=== PATIENT | male | born 1965 | race Caucasian/White ===

== ENCOUNTER 2018-12-07 22:40 | Emergency (ER) | payer SELFPAY ==
[~2018-12-07] VITALS: Ht 190.5 cm; Wt 95.3 kg
--- NOTE | 2018-12-07 22:53 | Emergency Room Report ---
History of Present Illness General Chief Complaint: Laceration Source: Patient Present Illness HPI This is a 53-year-old male who is right-hand dominant. He presents with chief complaint of laceration left elbow. Onset was acute and occurred just prior to arrival. He was saying a window. It was stuck and he try to push down on it. He slipped and his elbow went to the window pain. He sustained laceration to the posterior aspect the elbow. It was bleeding. He came right away. Tetanus was last year. Minimal pain. No other complaint. Allergies: Coded Allergies: No Known Allergies (Unverified , 12/07/18) Patient History Past Medical History: see triage record, old chart reviewed Past Surgical History: none Pertinent Family History: none Social History: Denies: smoking Immunizations: UTD Reviewed Nursing Documentation: PMH: Agreed; PSxH: Agreed Nursing Documentation-PMH Past Medical History: No Stated History Review of Systems Eye: Denies: eye pain, blurred vision ENT: Denies: ear pain, nose congestion, throat swelling Respiratory: Denies: cough, shortness of breath Cardiovascular: Denies: chest pain, palpitations Gastrointestinal: Denies: abdominal pain, diarrhea, nausea, vomiting Musculoskeletal: Denies: back pain, joint pain Skin: Denies: rash Neurological: Denies: headache, numbness Endocrine: Denies: increased thirst, increased urine Hematologic/Lymphatic: Denies: easy bruising All Other Systems: negative except mentioned in HPI Physical Exam Vital Signs Date Time Temp Pulse Resp B/P (MAP) Pulse Ox O2 Delivery O2 Flow Rate FiO2 12/07/18 22:44 98.4 125 18 123/76 (92) 99 Room Air Vitals with tachycardia Sp02 EP Interpretation: reviewed, normal General Appearance: well appearing, no apparent distress, alert Head: normocephalic, atraumatic Eyes: bilateral eye PERRL, bilateral eye EOMI ENT: hearing grossly normal, normal pharynx Neck: full range of motion, supple, no meningismus Respiratory: chest non-tender, lungs clear, normal breath sounds Cardiovascular #1: regular rate, rhythm, no murmur Gastrointestinal: normal bowel sounds, non tender, no mass, no organomegaly, no bruit, non-distended Musculoskeletal: back normal, gait/station normal, normal range of motion, other - Left elbow: 10 cm laceration to the posterior aspect of the elbow. Full range of motion. No foreign body. No tendon laceration. Bleeding controlled. Neurologic: alert, oriented x3 Psychiatric: mood/affect normal Procedures Laceration/Wound Repair Laceration/Wound Repair : Consent: Verbal Wound Location: upper extremity Wound's Depth, Shape: into muscle, irregular, flap, contused tissue Wound Length (cm): 10 Wound Explored: clean Irrigated w/ Saline (ccs): 1000 Betadine Prep?: Yes Anesthesia: 1% Lidocaine Volume Anesthetic (ccs): 8 Wound Repaired With: sutures Suture Size/Type: 3:0, proline Number of Sutures: 14 Layer Closure?: Yes Deep Layer Suture Size/Type: 4:0, other - Michaelvicryl Number Deep Layer Sutures: 3 Sterile Dressing Applied?: Yes Patient Tolerated: Well Complications: None Progress I placed 3 SQ sutures. I did 3 mattress sutures. And then 11 simple interrupted sutures. Total of 17 sutures done. Medical Decision Making Diagnostic Impression: Primary Impression: Laceration ER Course Patient with an elbow laceration. No evidence of any tendon laceration or foreign body. Last Vital Signs Date Time Temp Pulse Resp B/P (MAP) Pulse Ox O2 Delivery O2 Flow Rate FiO2 12/07/18 22:44 98.4 125 18 123/76 (92) 99 Room Air Status: improved Disposition: HOME, SELF-CARE Condition: Stable Scripts Cephalexin* (KEFLEX*) 500 Mg Capsule 500 MG ORAL TID, #21 CAP Prov: Reece Sparrow MD 12/07/18 Patient Instructions: Laceration Care, Adult Additional Instructions: Follow-up with your doctor in 3 to 5 days for wound check. Suture out in 10 to 14 days. Keep wound clean. Clean first with hydroperoxide and apply antibiotic ointment. Return if symptoms worsen. Reece Sparrow MD Dec 07, 2018 22:53
[2018-12-07] MEDS ORDERED: Lidocaine 1% Plain 30 ml INJ ONE (23:00)
[2018-12-07 23:03] VITALS: BP 123/76
--- NOTE | 2018-12-07 23:06 | NUR ---
ED Nurse Note: Patient walked into ER due to insision of his left elbow. Stated that was trying to close window and accidentally cut himself. AAO x4, VSS at this time, skin is dry warm to touch. Patient presented with large insision of his left elbow.
[2018-12-07] MEDS ORDERED: Neosporin Opth Oint ONE (23:32)
[2018-12-07] MEDS ORDERED: CEPHALEXIN500 MG ORAL (23:34)
[2018-12-07] MEDS ORDERED: Neosporin Oint Ud Pkt TOPIC ONE (23:45)
--- NOTE | 2018-12-07 23:46 | NUR ---
ED Nurse Note: Pt cleared by health care Provider for discharge. DC instructions/prescription was given and explained to pt and verbalized understanding of teachings. All medical deviecs such as ID band removed. Pt is AAO x4, ambulatory and left with all personal belongings.
== END 2018-12-07 23:45 | disposition home or self-care (01) ==
LOC: EMR 22:53
DX: S51.012A Laceration without foreign body of left elbow, initial encounter (principal); W25.XXXA Contact with sharp glass, initial encounter; Y92.9 Unspecified place or not applicable
CPT/HCPCS: 99283